=== PATIENT | male | born 1960 ===

== ENCOUNTER 2017-11-18 10:36 | Day surgery (SDC) | payer OTHER ==
[2016-10-28 10:30] VITALS: BMI 35.1
[2017-11-18] MEDS ORDERED: ceFAZolin 1 gm in NS 1 GM/100 ML BAG IVPB ONE (11:29)
[2017-11-18] MEDS ORDERED: Bupivacaine HCl 0.5% PF (10 ml) Inj ONE (11:29)
[2017-11-18] MEDS ORDERED: Lactated Ringer's 1,000 ML IV ONE (11:40)
[2017-11-18] MEDS ORDERED: Propofol 10 mg/ml Inj (20 ML) ONE ×2 (11:40→11:46)
[2017-11-18] MEDS ORDERED: Midazolam 2 MG/2 ML VIAL ONE (11:41)
--- NOTE | 2017-11-18 12:44 | PCM.SURG1 ---
Surgeon's Initial Post Op Note - Surgeon's Notes Surgeon: Chencho Service Team Leader: [id number], Tevin MS3 Type of Anesthesia: General Endo, Local Pre-Operative Diagnosis: Anal fistula Operative Findings: see op note Post-Operative Diagnosis: Anal fistula Operation Performed: Anal fistulectomy Specimen/Specimens Removed: N/A Estimated Blood Loss: EBL {In ML}: 15 Blood Products Given: N/A Drains Used: No Drains Post-Op Condition: Good Date of Surgery/Procedure: 11/18/17 Time of Surgery/Procedure: 11:40
[2017-11-18] MEDS ORDERED: HYDROmorphone 0.5 mg/0.5 ml ISec IVP PRN (12:54)
[2017-11-18 14:23] VITALS: BP 121/81; PULSE 60; RESP 18; TEMP 97; O2SAT 100
--- NOTE | 2017-11-19 22:38 | OP ---
PROCEDURE DATE: 11/18/2017 PREOPERATIVE DIAGNOSIS: Anal fistula. POSTOPERATIVE DIAGNOSIS: Anal fistula. PROCEDURE: Anal fistulatomy. SURGEON: Christopher Paiz M.D. DIRECTOR OF CONVENTION SERVICES: Dr. [place]. TYPE OF ANESTHESIA: General. DESCRIPTION OF OPERATION: The patient was anesthetized and placed in lithotomy stirrups. The anal area was prepped and draped in the usual sterile manner. The buttocks were taped slightly apart to allow visualization of the anus. The rigid sigmoidoscopy was performed to 10 cm with no significant findings, and the anal area was again prepped and draped and examination revealed a fistula opening at the posterior position just to the left of the midline at approximately 5' o clock in the lithotomy position. A probe was placed in to this opening, and there was noted to be a short straight fistula entering the anal canal also at approximately 5' o clock. There was a small fissure noted medial to the area of the fistula opening. A grooved director was passed over the probe, and the short segment of overlying tissue, approximately 1 cm, was divided with the cautery. The area was again cauterized for hemostasis and no additional abnormalities were identified. Vaseline gauze packing was placed followed by a dry dressing. The patient tolerated the procedure well and transferred to the recovery room in stable condition. Estimated blood loss for the procedure was 10 mL. Christopher Paiz MD
== END 2017-11-18 14:42 | disposition home or self-care (01) ==
LOC: C.SDS 10:36
PROVIDERS: ATTEND Specialist
DX: K60.3 Anal fistula (principal)
CPT/HCPCS: 46280; J0690; J1170; J2250; J2704; J3010; J7120

== ENCOUNTER 2017-11-25 17:54 | Emergency (ER) | payer OTHER ==
[2017-11-25 17:54] VITALS: BMI 35.1
--- NOTE | 2017-11-25 20:39 | C.PDOC ---
History Of Present Illness The patient presents to the ED for evaluation of rectal pain. Patient underwent a fistulectomy on 11/18. He now reports bleeding with bowel movements. Patient states he has a follow-up appointment with Dr. Paiz scheduled for tomorrow. Otherwise, patient denies fever, chills. Time Seen by Provider: 11/25/17 20:39 Chief Complaint (Nursing): Abdominal Pain History Per: Patient History/Exam Limitations: no limitations Onset/Duration Of Symptoms: Days Current Symptoms Are (Timing): Still Present Severity: Mild Pain Scale Rating Of: 2 Radiation Of Pain To:: None Quality Of Discomfort: "Pain" Associated Symptoms: denies: Fever, Chills Exacerbating Factors: None Alleviating Factors: None Last Bowel Movement: Today Recent travel outside of the [place]: No Additional History Per: Patient Past Medical History Reviewed: Historical Data, Nursing Documentation, Vital Signs Vital Signs: Last Vital Signs Temp 98.4 F 11/25/17 21:00 Pulse 65 11/25/17 21:00 Resp 16 11/25/17 21:00 BP 122/75 11/25/17 21:00 Pulse Ox 98 11/25/17 21:00 - Medical History PMH: Diverticulitis (diverticulosis), Hypercholesterolemia, Pneumonia (x 1 year) Denies: Chronic Kidney Disease Surgical History: Endoscopy Family History: States: No Known Family Hx - Social History Hx Alcohol Use: No Hx Substance Use: No - Immunization History Hx Tetanus Toxoid Vaccination: No Hx Influenza Vaccination: No Hx Pneumococcal Vaccination: No Review Of Systems Constitutional: Negative for: Fever, Chills Cardiovascular: Negative for: Chest Pain, Palpitations Respiratory: Negative for: Cough, Shortness of Breath Gastrointestinal: Positive for: Hematochezia, Rectal Pain. Negative for: Nausea , Vomiting, Abdominal Pain, Diarrhea, Constipation Genitourinary: Negative for: Dysuria, Hematuria Skin: Negative for: Rash, Lesions, Jaundice, Bruising Neurological: Negative for: Weakness, Numbness Physical Exam - Physical Exam Appears: Non-toxic, No Acute Distress Skin: Warm, Dry Gastrointestinal/Abdominal: Soft, No Tenderness, No Guarding, No Rebound Rectal: Other (surgical scar is clean and dry. no active bleeding ) Neurological/Psych: Oriented x3 Gait: Steady ED Course And Treatment O2 Sat by Pulse Oximetry: 96 (on RA) Pulse Ox Interpretation: Normal Disposition Counseled Patient/Family Regarding: Studies Performed, Diagnosis, Need For Followup, Rx Given - Disposition Referrals: Christopher Paiz MD [Staff Provider] - Disposition: HOME/ ROUTINE Disposition Time: 20:39 Condition: FAIR Prescriptions: Hydrocortisone 2.5% (Rectal) [Anusol-HC] 30 applic KY BID #1 tube Polyethylene Glycol 3350 [Miralax] 17 gm PO DAILY #270 ml Forms: [facility] (Romansh), General Discharge Instructions - Clinical Impression Clinical Impression: Rectal pain, Encounter for post surgical wound check - Scribe Statement The provider has reviewed the documentation as recorded by the Scribe (Mary Jo Magana) Provider Attestation: All medical record entries made by the Scribe were at my direction and personally dictated by me. I have reviewed the chart and agree that the record accurately reflects my personal performance of the history, physical exam, medical decision making, and the department course for this patient. I have also personally directed, reviewed, and agree with the discharge instructions and disposition.
[2017-11-25 21:20] VITALS: BP 122/75; PULSE 65; RESP 16; TEMP 98.4
[2017-11-26 00:44] VITALS: O2SAT 96
== END 2017-11-25 21:20 | disposition home or self-care (01) ==
LOC: C.ER 17:54
DX: K62.89 Other specified diseases of anus and rectum (principal); E78.00 Pure hypercholesterolemia, unspecified; Z98.890 Other specified postprocedural states